=== PATIENT | female | born 1950 | race African-American/Black ===

== ENCOUNTER 2021-09-06 20:44 | Emergency (ER) | payer MEDICAID, OTHER ==
[~2021-09-06] VITALS: Ht 165.1 cm; Wt 60.0 kg
[2021-09-06 20:52] VITALS: BP 152/86
== END 2021-09-06 21:55 | disposition home or self-care (01) ==
LOC: ER 20:44
DX: R06.00 Dyspnea, unspecified (principal); Z53.21 Procedure and treatment not carried out due to patient leaving prior to being seen by health care provider
CPT/HCPCS: 99283

== ENCOUNTER 2022-03-20 20:20 | Emergency (ER) | payer OTHER, MEDICAID ==
[~2022-03-20] VITALS: Ht 162.6 cm; Wt 69.0 kg
[2022-03-20 21:40] LABS: BASOPHILS % 0.5 % (0.0-2.0); EOSINOPHILS % 1.2 % (0.0-5.0); HEMATOCRIT. 30.7 % (36.0-48.0); HEMOGLOBIN. 9.9 g/dL (12.0-16.0); LYMPHOCYTES % 29.4 % (20.0-50.0); MEAN CORPUSCULAR HEMOGLOBIN 25.5 pg (28.0-32.0); MEAN CORPUSCULAR VOLUME 79.5 fL (81.0-99.0); MEAN PLATELET VOLUME 8.1 fl (7.4-10.4); MONOCYTES % 6.9 % (2.0-8.0); PLATELET 251 x1000/uL (130-400); RED BLOOD CELL COUNT 3.86 mill/uL (4.2-5.4)
[2022-03-20 21:54] LABS: CHLORIDE 110 mEq/L (98-107)
[2022-03-20 23:03] VITALS: BP 115/68
== END 2022-03-20 23:22 | disposition home or self-care (01) ==
LOC: ER 20:20
DX: I47.1 Supraventricular tachycardia (principal); I10 Essential (primary) hypertension; J44.9 Chronic obstructive pulmonary disease, unspecified; I25.2 Old myocardial infarction; Z99.81 Dependence on supplemental oxygen
CPT/HCPCS: 36415; 71045; 80053; 83880; 84484; 85025; 93005; 99285

== ENCOUNTER 2022-08-04 13:38 | Inpatient (IN) | payer MEDICAID, OTHER ==
[~2022-08-04] VITALS: Ht 152.4 cm; Wt 64.9 kg
[~2022-08-04 13:38] MED LIST: P50 MT
[2022-08-04] MEDS ORDERED: IOHEXOL-350 100 ML BOTTLE ONE (15:13)
[2022-08-04 15:20] LABS: CHLORIDE 109 mEq/L (98-107)
[2022-08-04 15:21] LABS: BASOPHILS % 0.4 % (0.0-2.0); EOSINOPHILS % 0.9 % (0.0-5.0); HEMATOCRIT. 32.6 % (36.0-48.0); HEMOGLOBIN. 10.4 g/dL (12.0-16.0); LYMPHOCYTES % 15.5 % (20.0-50.0); MEAN CORPUSCULAR HEMOGLOBIN 25.4 pg (28.0-32.0); MEAN CORPUSCULAR VOLUME 79.6 fL (81.0-99.0); MONOCYTES % 8.3 % (2.0-8.0); NEUTROPHILS % 74.9 % (40.0-76.0); RED BLOOD CELL COUNT 4.09 mill/uL (4.2-5.4); RED CELL DISTRIBUTION WIDTH 15.3 % (11.6-14.6)
[2022-08-04 15:26] LABS: INR 0.9; PARTIAL THROMBOPLASTIN TIME 21.8 sec (23.4-31.0)
[2022-08-04 16:24] LABS: PLATELET 263 x1000/uL (130-400); PLATELET ESTIMATE NORMAL
[2022-08-04 16:25] LABS: MEAN PLATELET VOLUME 8.3 fl (7.4-10.4)
[2022-08-04] MEDS ORDERED: CLOPIDOGREL 75MG TABLET PO ONE (16:30)
[2022-08-04 16:54] LABS: CLARITY URINE CLEAR (CLEAR); COLOR URINE YELLOW (YELLOW); KETONES URINE NEGATIVE (NEGATIVE); LEUKOCYTE ESTERASE URINE NEGATIVE (NEGATIVE); NITRITE URINE NEGATIVE (NEGATIVE); OCCULT BLOOD URINE NEGATIVE (NEGATIVE); PROTEIN URINE NEGATIVE (NEGATIVE); SPECIFIC GRAVITY URINE 1.044 (1.005-1.030); UROBILINOGEN URINE 0.2 E.U./dL (0.2-1.0)
[2022-08-04 21:31] LABS: CHLORIDE 107 mEq/L (98-107)
[2022-08-05] MEDS ORDERED: ONDANSETRON HCL 4MG/2ML INJ IV PRN (09:15)
[2022-08-05] MEDS ORDERED: ACETAMINOPHEN 325MG TABLET PO PRN (09:15)
[2022-08-05] MEDS ORDERED: CLONIDINE 0.1MG TABLET PO PRN (09:15)
[2022-08-05] MEDS ORDERED: IPRATROPIUM/ALBUTEROL 0.5-3(2.5)MG/3ML NEB HHN PRN (09:15)
[2022-08-05 10:52] VITALS: BP 152/88
[2022-08-05 11:06] VITALS: BP 152/88
[2022-08-05 12:00] VITALS: BP 137/90
[2022-08-05] MEDS: LOSARTAN POTASSIUM 25 MG TABLET PO SCH (14:09)
[2022-08-05] MEDS: VERAPAMIL HCL 40MG TABLET PO SCH ×2 (14:09→22:46)
[2022-08-05 16:00] VITALS: BP 120/89
[2022-08-05] MEDS ORDERED: CLOP75TA33 PO (16:49)
[2022-08-05] MEDS ORDERED: ALBU2.5V13 IH (16:49)
[2022-08-05] MEDS ORDERED: PANT40TA51 PO (16:49)
[2022-08-05] MEDS ORDERED: CEFP100T8 PO (16:49)
[2022-08-05] MEDS ORDERED: LOSA50TA41 PO (16:49)
[2022-08-05] MEDS ORDERED: ONDA4TAB11 PO (16:49)
[2022-08-05] MEDS ORDERED: NITR0.4T49 SL (16:49)
[2022-08-05] MEDS ORDERED: METH-371 PO (16:49)
[2022-08-05] MEDS ORDERED: CICL6.1H2 INH (16:49)
[2022-08-05] MEDS ORDERED: TRAZ-251 PO (16:49)
[2022-08-05] MEDS ORDERED: ASCO-339 PO (16:49)
[2022-08-05] MEDS ORDERED: CALC650T30 PO (16:49)
[2022-08-05] MEDS ORDERED: BUSP5TAB3 PO (16:49)
[2022-08-05] MEDS ORDERED: VERA120T23 PO (16:49)
[2022-08-05] MEDS ORDERED: TIOT4MIS3 IH (16:49)
[2022-08-05] MEDS ORDERED: OMEP40CA20 PO (16:49)
[2022-08-05] MEDS ORDERED: ALBU90AE IH (16:49)
[2022-08-05] MEDS ORDERED: CHOL400D7 PO (16:49)
[2022-08-05] MEDS ORDERED: METR-167 PO (16:49)
[2022-08-05 20:00] VITALS: BP 118/78
[2022-08-05] MEDS: CLOPIDOGREL 75MG TABLET PO SCH (22:46)
[2022-08-06] VITALS: BP 123/81
[2022-08-06 04:00] VITALS: BP 129/76
[2022-08-06] MEDS ORDERED: DEXTROSE 50% WATER 50ML SYRINGE IV PRN (05:45)
[2022-08-06] MEDS: VERAPAMIL HCL 40MG TABLET PO SCH (07:03)
[2022-08-06] MEDS: INSULIN LISPRO 100 UNITS/ML SUBCUT SCH ×2 (07:07→12:10)
[2022-08-06] MEDS: BLOOD SUGAR DIAGNOSTIC STRIP TEST SCH ×3 (07:08→12:10)
[2022-08-06 08:00] VITALS: BP 114/74
[2022-08-06] MEDS: LOSARTAN POTASSIUM 25 MG TABLET PO SCH (09:49)
[2022-08-06] MEDS: CLOPIDOGREL 75MG TABLET PO SCH (09:49)
[2022-08-06] MEDS ORDERED: CLOP75TA33 PO (13:15)
[2022-08-06 13:28] VITALS: BP 133/82
[2022-08-06 14:11] LABS: BASOPHILS % 0.2 % (0.0-2.0); HEMOGLOBIN. 10.7 g/dL (12.0-16.0); LYMPHOCYTES % 14.7 % (20.0-50.0); MEAN CORPUSCULAR HEMOGLOBIN 25.3 pg (28.0-32.0); MEAN CORPUSCULAR VOLUME 78.2 fL (81.0-99.0); MEAN PLATELET VOLUME 7.7 fl (7.4-10.4); MONOCYTES % 6.9 % (2.0-8.0); NEUTROPHILS % 77.2 % (40.0-76.0); PLATELET 304 x1000/uL (130-400); RED BLOOD CELL COUNT 4.22 mill/uL (4.2-5.4); RED CELL DISTRIBUTION WIDTH 14.6 % (11.6-14.6)
[2022-08-06 14:54] LABS: CHLORIDE 104 mEq/L (98-107)
[2022-08-06 15:07] LABS: HDL CHOLESTEROL 62 mg/dL (40-59); LDL CHOLESTEROL 75 mg/dL (5-100)
== END 2022-08-06 16:25 | disposition home or self-care (01) | DRG 66 ==
LOC: ER 13:38 → EDBEDREQTM 16:43 → EDBEDREQ 16:43 → EDBEDREQSVC 16:43 → 7EST 08-05 01:53 → EDBEDREQTM 08-05 01:55 → EDBEDREQ 08-05 01:55 → ENRESERV 08-05 07:49
PROVIDERS: ADMIT Family Medicine Adult Medicine; ATTEND Family Medicine Adult Medicine
PROC: 4A00X4Z Measurement of Central Nervous Electrical Activity, External Approach (ICD-10-PCS; principal; 2022-08-06)
DX: I63.9 Cerebral infarction, unspecified (principal); E03.9 Hypothyroidism, unspecified; E78.00 Pure hypercholesterolemia, unspecified; I10 Essential (primary) hypertension; Z20.822 Contact with and (suspected) exposure to COVID-19; J39.8 Other specified diseases of upper respiratory tract; K21.9 Gastro-esophageal reflux disease without esophagitis; I25.10 Atherosclerotic heart disease of native coronary artery without angina pectoris; E78.5 Hyperlipidemia, unspecified; J44.9 Chronic obstructive pulmonary disease, unspecified; R49.0 Dysphonia; I25.2 Old myocardial infarction; Z88.8 Allergy status to other drugs, medicaments and biological substances; Z98.51 Tubal ligation status; Z88.6 Allergy status to analgesic agent; D64.9 Anemia, unspecified
CPT/HCPCS: 36415; 70496; 70498; 70551; 71045; 80053; 80061; 81003; 82962; 83036; 83880; 84484; 85025; 86850; 86900; 87426; 93005; 93970; 95816; 97162; 99291; J1815; Q9967

== ENCOUNTER 2022-10-22 09:19 | Emergency (ER) | payer OTHER ==
[~2022-10-22] VITALS: Ht 167.6 cm; Wt 62.0 kg
[~2022-10-22 09:19] MED LIST changes: +ALBU2.5V13 IH; +ALBU90AE IH; +ASCO-339 PO; +BUSP5TAB3 PO; +CALC650T30 PO; +CEFP100T8 PO; +CHOL400D7 PO; +CICL6.1H2 INH; +CLOP75TA33 PO; +LOSA50TA41 PO; +METH-371 PO; +METR-167 PO; +NITR0.4T49 SL; +OMEP40CA20 PO; +ONDA4TAB11 PO; +PANT40TA51 PO; +TIOT4MIS3 IH; +TRAZ-251 PO; +VERA120T23 PO
[2022-10-22 09:21] VITALS: BP 185/103
== END 2022-10-22 10:44 | disposition left against medical advice (07) ==
LOC: ER 09:19
DX: Z53.21 Procedure and treatment not carried out due to patient leaving prior to being seen by health care provider (principal)

== ENCOUNTER 2023-06-22 14:15 | Emergency (ER) | payer OTHER, MEDICAID ==
[~2023-06-22] VITALS: Ht 165.1 cm; Wt 75.0 kg
[2023-06-22] MEDS ORDERED: LEVOFLOXACIN 750MG PREMIX 150 ML IV STA (14:32)
[2023-06-22] MEDS ORDERED: METHYLPREDNISOLONE SOD SUCC 125MG/2ML (ACT-O-VIAL) IV STA (14:32)
[2023-06-22] MEDS ORDERED: IPRATROPIUM BROMIDE (0.02%) 0.5MG/2.5ML NEB HHN STA (14:32)
[2023-06-22] MEDS ORDERED: ALBUTEROL (0.083%) 2.5MG/3ML NEB HHN STA (14:32)
[2023-06-22] MEDS ORDERED: GUAIFENESIN 600MG ER TABLET PO SCH (14:45)
[2023-06-22 15:29] LABS: CHLORIDE 108 mEq/L (98-107); INDEX HEMOLYSI 1 (1-3); INDEX ICTERIC 1 (1-4); INDEX LIPEMIC 1 (1-3); POTASSIUM 3.7 mEq/L (3.5-5.1); SODIUM 143 mEq/L (136-145)
[2023-06-22 15:30] LABS: BASOPHILS % 0.2 % (0.0-2.0); HEMATOCRIT. 34.6 % (36.0-48.0); LYMPHOCYTES % 13.7 % (20.0-50.0); MEAN CORPUSCULAR HEMOGLOBIN 24.6 pg (28.0-32.0); MEAN CORPUSCULAR HGB CONC 31.9 g/dL (31.0-37.0); MEAN CORPUSCULAR VOLUME 77.3 fL (81.0-99.0); MEAN PLATELET VOLUME 8.4 fl (7.4-10.4); MONOCYTES % 7.3 % (2.0-8.0); NEUTROPHILS % 78.8 % (40.0-76.0); PLATELET 286 x1000/uL (130-400); RED BLOOD CELL COUNT 4.48 mill/uL (4.2-5.4); RED CELL DISTRIBUTION WIDTH 15.4 % (11.6-14.6); WHITE BLOOD COUNT 13.1 x1000/uL (4.5-11.0)
[2023-06-22 15:33] LABS: DIFFERENTIAL COMMENT 1
[2023-06-22 15:37] LABS: ALANINE AMINOTRANSFERASE 27 IU/L (13-61); ALBUMIN 3.5 g/dL (3.4-5.0); ASPARTATE AMINOTRANSFERASE 17 IU/L (15-37); BILIRUBIN TOTAL 0.4 mg/dL (0.1-1.0); CALCIUM 8.6 mg/dL (8.5-10.1); CARBON DIOXIDE 30 mEq/L (21-32); CREATININE 1.1 mg/dL (0.6-1.3); GLUCOSE 116 mg/dL (70-105); PROTEIN TOTAL 6.9 g/dL (6.0-8.3); UREA NITROGEN BLOOD 17 mg/dL (7-21)
[2023-06-22] MEDS ORDERED: METHYLPREDNISOLONE SOD SUCC 125MG/2ML (ACT-O-VIAL) IV NR (17:30)
[2023-06-22] MEDS ORDERED: LEVOFLOXACIN 750MG PREMIX 150 ML IV NR (18:00)
[2023-06-22 19:36] VITALS: PULSE 81; RESP 20; O2SAT 99
[2023-06-22] MEDS ORDERED: ALBUTEROL (0.083%) 2.5MG/3ML NEB HHN NR (19:45)
[2023-06-22] MEDS ORDERED: IPRATROPIUM BROMIDE (0.02%) 0.5MG/2.5ML NEB HHN NR (19:45)
[2023-06-23 00:31] VITALS: BP 142/70; PULSE 95; RESP 21; TEMP 98.6
== END 2023-06-23 00:44 | disposition short-term general hospital (02) ==
LOC: ER 14:15
DX: J44.1 Chronic obstructive pulmonary disease with (acute) exacerbation (principal); J39.8 Other specified diseases of upper respiratory tract; I10 Essential (primary) hypertension; Z88.5 Allergy status to narcotic agent; Z88.8 Allergy status to other drugs, medicaments and biological substances; Z79.899 Other long term (current) drug therapy
CPT/HCPCS: 99285; 96365; 71045; 96366; 96375; 87426; 80053; 85025; 36415; 84145; 94640; 82803; 93005; J2930; J1956; C9803

== ENCOUNTER 2023-07-05 03:52 | Emergency (ER) | payer OTHER, MEDICAID ==
[~2023-07-05] VITALS: Ht 167.6 cm; Wt 68.0 kg
[2023-07-05] MEDS ORDERED: IPRATROPIUM BROMIDE (0.02%) 0.5MG/2.5ML NEB HHN STA (04:37)
[2023-07-05] MEDS ORDERED: ALBUTEROL (0.083%) 2.5MG/3ML NEB HHN STA (04:37)
[2023-07-05] MEDS ORDERED: METHYLPREDNISOLONE SOD SUCC 125MG/2ML (ACT-O-VIAL) IV STA (04:37)
[2023-07-05 05:02] LABS: BASOPHILS % 0.4 % (0.0-2.0); DIFFERENTIAL COMMENT 0; EOSINOPHILS % 0.9 % (0.0-5.0); HEMATOCRIT. 33.9 % (36.0-48.0); HEMOGLOBIN. 10.8 g/dL (12.0-16.0); LYMPHOCYTES % 12.6 % (20.0-50.0); MEAN CORPUSCULAR HGB CONC 31.7 g/dL (31.0-37.0); MEAN CORPUSCULAR VOLUME 78.6 fL (81.0-99.0); MONOCYTES % 5.3 % (2.0-8.0); NEUTROPHILS % 80.8 % (40.0-76.0); PLATELET 264 x1000/uL (130-400); RED BLOOD CELL COUNT 4.31 mill/uL (4.2-5.4); RED CELL DISTRIBUTION WIDTH 16.2 % (11.6-14.6); WHITE BLOOD COUNT 12.8 x1000/uL (4.5-11.0)
[2023-07-05 05:50] VITALS: PULSE 83; RESP 20; O2SAT 98
[2023-07-05 06:25] LABS: CHLORIDE 106 mEq/L (98-107); INDEX HEMOLYSI 4 (1-3); INDEX ICTERIC 1 (1-4); INDEX LIPEMIC 1 (1-3); POTASSIUM 4.4 mEq/L (3.5-5.1); SODIUM 144 mEq/L (136-145)
[2023-07-05 06:29] LABS: ALBUMIN 3.1 g/dL (3.4-5.0); CALCIUM 8.4 mg/dL (8.5-10.1); CARBON DIOXIDE 31 mEq/L (21-32); UREA NITROGEN BLOOD 14 mg/dL (7-21)
[2023-07-05 06:35] LABS: BG BASE EXCESS 6.6 mmol/L (-2.0-2.0); BG CARBOXYHEMOGLOBIN 0.7 % (0.5-1.5); BG DEOXYHEMOGLOBIN 1.9 % (0.0-5.0); BG FRACTION INSPIRED OXYGEN 28; BG HCO3 ACT 32.3 mmol/L (22.0-26.0); BG METHEMOGLOBIN 0.4 % (0.0-1.5); BG OXYGEN SATURATION 98.1 % (92.0-98.5); BG PCO2 51.2 mmHg (35.0-45.0); BG PH 7.418 (7.350-7.450); BG PO2 106.2 mmHg (75.0-100.0); BG SAMPLE SITE LEFT RADIAL; BG TOTAL HEMOGLOBIN 12.3 g/dL (12.0-18.0); BG VENT MODE NASAL CANNULA
[2023-07-05 06:36] LABS: ALANINE AMINOTRANSFERASE 30 IU/L (13-61); ASPARTATE AMINOTRANSFERASE 24 IU/L (15-37); BILIRUBIN TOTAL 0.6 mg/dL (0.1-1.0); CREATININE 1.1 mg/dL (0.6-1.3); GLUCOSE 117 mg/dL (70-105); NT PRO B-TYPE NATRIURETIC PEP 67 pg/mL (5-125); PROTEIN TOTAL 6.6 g/dL (6.0-8.3); TROPONIN I HIGH SENSITIVITY 27 ng/L (<54)
[2023-07-05 09:17] VITALS: BP 166/97; PULSE 107; RESP 18; TEMP 98.1
== END 2023-07-05 09:32 | disposition short-term general hospital (02) ==
LOC: ER 03:52 → CANBEDREQ 11:20
DX: J44.1 Chronic obstructive pulmonary disease with (acute) exacerbation (principal); I10 Essential (primary) hypertension; I25.2 Old myocardial infarction; Z86.73 Personal history of transient ischemic attack (TIA), and cerebral infarction without residual deficits; Z88.5 Allergy status to narcotic agent; Z88.8 Allergy status to other drugs, medicaments and biological substances
CPT/HCPCS: 99285; 96374; 71045; 80053; 83880; 85025; 84484; 36415; 94640; 82805; 82375; 93005; 36600; J2930

== ENCOUNTER 2023-10-08 14:39 | Emergency (ER) | payer OTHER, MEDICAID ==
[~2023-10-08] VITALS: Ht 170.2 cm; Wt 91.0 kg
[2023-10-08 14:42] VITALS: TEMP 98.3
[2023-10-08] MEDS: METHYLPREDNISOLONE SOD SUCC 125MG/2ML (ACT-O-VIAL) IV STA (14:56)
[2023-10-08 15:15] VITALS: PULSE 76; RESP 24; O2SAT 97
[2023-10-08] MEDS: ALBUTEROL (0.083%) 2.5MG/3ML NEB HHN STA (15:15)
[2023-10-08] MEDS: IPRATROPIUM BROMIDE (0.02%) 0.5MG/2.5ML NEB HHN STA (15:15)
[2023-10-08 15:40] LABS: BASOPHILS % 0.8 % (0.0-2.0); DIFFERENTIAL COMMENT 0; EOSINOPHILS % 0.3 % (0.0-5.0); HEMATOCRIT. 33.7 % (36.0-48.0); HEMOGLOBIN. 10.9 g/dL (12.0-16.0); LYMPHOCYTES % 20.8 % (20.0-50.0); MEAN CORPUSCULAR HEMOGLOBIN 25.7 pg (28.0-32.0); MEAN CORPUSCULAR HGB CONC 32.3 g/dL (31.0-37.0); MEAN CORPUSCULAR VOLUME 79.8 fL (81.0-99.0); MEAN PLATELET VOLUME 8.4 fl (7.4-10.4); MONOCYTES % 7.7 % (2.0-8.0); NEUTROPHILS % 70.4 % (40.0-76.0); PLATELET 291 x1000/uL (130-400); RED BLOOD CELL COUNT 4.22 mill/uL (4.2-5.4); RED CELL DISTRIBUTION WIDTH 15.5 % (11.6-14.6); WHITE BLOOD COUNT 10.2 x1000/uL (4.5-11.0)
[2023-10-08 15:52] LABS: ALANINE AMINOTRANSFERASE 10 IU/L (10-49); ALBUMIN 4.2 g/dL (3.2-4.8); ASPARTATE AMINOTRANSFERASE 15 IU/L (<34); BILIRUBIN TOTAL 0.4 mg/dL (0.1-1.0); CALCIUM 9.1 mg/dL (8.7-10.4); CARBON DIOXIDE 30 mEq/L (21-32); CHLORIDE 106 mEq/L (98-107); CREATININE 1.3 mg/dL (0.6-1.0); GLUCOSE 109 mg/dL (70-105); POTASSIUM 4.1 mEq/L (3.5-5.1); PROTEIN TOTAL 6.5 g/dL (6.0-8.3); SODIUM 141 mEq/L (136-145); UREA NITROGEN BLOOD 12 mg/dL (9-23)
[2023-10-08 15:55] LABS: TROPONIN I HIGH SENSITIVITY < 4 ng/L (3.0-34)
[2023-10-08] MEDS ORDERED: P50 MT (17:50)
[2023-10-08 19:11] VITALS: BP 130/67; PULSE 66; RESP 20
== END 2023-10-08 19:16 | disposition home or self-care (01) ==
LOC: ER 14:39
DX: J44.1 Chronic obstructive pulmonary disease with (acute) exacerbation (principal); I10 Essential (primary) hypertension; I25.2 Old myocardial infarction; Z68.31 Body mass index [BMI] 31.0-31.9, adult; Z86.73 Personal history of transient ischemic attack (TIA), and cerebral infarction without residual deficits; Z79.899 Other long term (current) drug therapy
CPT/HCPCS: 99285; 96374; 71045; 80053; 83880; 85025; 84484; 36415; 94640; 93005; J2930

== ENCOUNTER 2025-05-01 16:22 | Emergency (ER) | payer OTHER, MEDICAID ==
[~2025-05-01] VITALS: Ht 162.6 cm; Wt 64.0 kg
[~2025-05-01 16:22] MED LIST changes: +ONDA-239 PO; -ONDA4TAB11 PO
[2025-05-01 16:26] VITALS: O2SAT 99
[2025-05-01 16:57] LABS: BASOPHILS % 0.7 % (0.0-2.0); EOSINOPHILS % 0.9 % (0.0-5.0); HEMATOCRIT. 29.9 % (36.0-48.0); HEMOGLOBIN. 9.5 g/dL (12.0-16.0); LYMPHOCYTES % 23.9 % (20.0-50.0); MEAN PLATELET VOLUME 8.1 fl (7.4-10.4); MONOCYTES % 7.0 % (2.0-8.0); NEUTROPHILS % 67.5 % (40.0-76.0); PLATELET 275 x1000/uL (130-400); RED BLOOD CELL COUNT 3.75 mill/uL (4.2-5.4); RED CELL DISTRIBUTION WIDTH 16.3 % (11.6-14.6)
[2025-05-01 17:11] LABS: CREATININE 1.2 mg/dL (0.6-1.0); UREA NITROGEN BLOOD 7 mg/dL (9-23)
[2025-05-01 17:12] LABS: TROPONIN I HIGH SENSITIVITY 5 ng/L (3.0-34)
[2025-05-01] MEDS ORDERED: IPRATROPIUM/ALBUTEROL 0.5-3(2.5)MG/3ML NEB NEB ONE (18:45)
[2025-05-01] MEDS: METHYLPREDNISOLONE SOD SUCC 125MG/2ML (ACT-O-VIAL) IV ONE (18:55)
[2025-05-01 19:37] LABS: INFLUENZA TYPE A Presumptive Negative (Pres. Neg.)
[2025-05-01 19:38] LABS: INFLUENZA TYPE B Presumptive Negative (Pres. Neg.)
[2025-05-01 19:39] LABS: RESPIRATORY SYNCYTIAL VIRUS Not Detected (Not Detectd)
[2025-05-01 22:15] VITALS: BP 148/80; PULSE 93; RESP 20; TEMP 36.8; O2SAT 98
== END 2025-05-01 22:41 | disposition short-term general hospital (02) ==
LOC: ER 16:22 → CMPBEDREQ 05-02 19:26
DX: R06.02 Shortness of breath (principal); E03.9 Hypothyroidism, unspecified; E78.00 Pure hypercholesterolemia, unspecified; I10 Essential (primary) hypertension; I25.10 Atherosclerotic heart disease of native coronary artery without angina pectoris; I25.2 Old myocardial infarction; J44.89 Other specified chronic obstructive pulmonary disease; Z79.51 Long term (current) use of inhaled steroids; Z86.73 Personal history of transient ischemic attack (TIA), and cerebral infarction without residual deficits; Z99.81 Dependence on supplemental oxygen; Z88.6 Allergy status to analgesic agent; Z88.5 Allergy status to narcotic agent
CPT/HCPCS: 99285; 96374; 71045; 87426; 80048; 85025; 85379; 87420; 84484; 87804 ×2; 36415; 93005; J2919